=== PATIENT | female | born 1945 | race Caucasian/White ===

== ENCOUNTER 2016-09-12 01:09 | Inpatient (IN) | payer MEDICARE, MEDICAID ==
[2016-09-12] VITALS (9 sets, daily range): BP systolic 89–131; BP diastolic 44–59
[~2016-09-12] VITALS: Ht 167.6 cm; Wt 108.9 kg
[2016-09-12] MEDS ORDERED: FORADIL12 MCG IH (01:18)
[2016-09-12] MEDS ORDERED: VALPROIC ACID250 MG PO (01:18)
[2016-09-12] MEDS ORDERED: IPRATROPIUM BRO15 ML NS (01:18)
[2016-09-12] MEDS ORDERED: HALOPERIDOL1 MG ORAL (01:18)
[2016-09-12] MEDS ORDERED: OXYTROL1 EACH TD (01:18)
[2016-09-12] MEDS ORDERED: ATORVASTATIN CA20 MG ORAL (01:18)
[2016-09-12] MEDS ORDERED: LEVOTHYROXINE100 MCG ORAL (01:18)
[2016-09-12] MEDS ORDERED: ZYPREXA5 MG ORAL (01:18)
[2016-09-12] MEDS ORDERED: DOCUSATE SODIU100 MG ORAL (01:18)
[2016-09-12] MEDS ORDERED: LASIX40 MG ORAL (01:18)
[2016-09-12] MEDS ORDERED: SEROQUEL XR400 MG ORAL (02:13)
[2016-09-12] MEDS: metroNIDAZOLE 500mg 100 ML IV SCH ×4 (02:18→10:14)
[2016-09-12 02:20] LABS: BASOPHILS % (AUTO) 0.5 % (0.0-2.0); EOSINOPHILS % (AUTO) 0.2 % (0.0-3.0); LYMPHOCYTES % (AUTO) 14.1 % (20.0-45.0); MEAN CORPUSCULAR HEMOGLOBIN 33.7 PG (27.0-31.0); MEAN CORPUSCULAR HGB CONC 32.7 G/DL (32.0-36.0); MEAN CORPUSCULAR VOLUME 103 FL (80-99); MONOCYTES % (AUTO) 10.9 % (1.0-10.0); NEUTROPHILS % (AUTO) 74.3 % (45.0-75.0); PLATELET COUNT 172 K/UL (150-450); RED BLOOD COUNT 3.55 M/UL (4.20-5.40); RED CELL DISTRIBUTION WIDTH 13.7 % (11.6-14.8); WHITE BLOOD COUNT 15.7 K/UL (4.8-10.8)
[2016-09-12 02:22] LABS: APPEARANCE,URINE SLIGHTLY CLOUDY; KETONES,URINE 1+ (NEGATIVE); LEUKOCYTE ESTERASE ,URINE NEGATIVE (NEGATIVE); NITRITE,URINE POSITIVE (NEGATIVE); PH,URINE 5 (4.5-8.0); PROTEIN,URINE 3+ (NEGATIVE); UROBILINOGEN,URINE 1 MG/DL (0.0-1.0)
[2016-09-12 02:34] LABS: ALANINE AMINOTRANSFERASE 15 U/L (3-33); ANION GAP 15 (5-15); ASPARTATE AMINO TRANSFERASE 32 U/L (5-40); CALCIUM 8.4 mg/dL (8.6-10.2); CARBON DIOXIDE 27 mEQ/L (20-30); CHLORIDE 95 mEQ/L (98-107); CREATININE 0.8 mg/dL (0.5-0.9); HEMOLYSIS 8; POTASSIUM 3.7 mEQ/L (3.4-4.9); SODIUM 137 mEQ/L (135-145); TOTAL PROTEIN 6.5 g/dL (6.6-8.7)
[2016-09-12 02:36] LABS: REFLEX LACTIC ACID YES OR NO YES
[2016-09-12 02:42] LABS: BACTERIA,URINE MANY /HPF; HYALINE CASTS, URINE 0-2 /LPF; SQUAMOUS EPITHELIAL CELL,UR MODERATE /LPF (NONE/OCC); WBC,URINE 15-20 /HPF (0 - 2)
[2016-09-12 03:08] LABS: TROPONIN I < 0.30 ng/mL (<=0.30)
[2016-09-12 03:13] LABS: CKMB 1.7 ng/mL (< 3.8)
--- NOTE | 2016-09-12 03:57 | Emergency Room Report ---
History of Present Illness General Chief Complaint: Altered Level of Consciousness Source: Patient, Medical Record Present Illness HPI Patient is a 71-year-old female brought in by ambulance after increased altered level consciousness. The patient was noted to have prior history of psychosis. She was noted to be more confused. Patient noted have increased difficulty breathing and as well as productive cough. Patient was noted to have markedly difficulty breathing and was started on supplemental oxygen by EMS. The patient was noted to be hot to the touch. She presented from senior living Allergies: Coded Allergies: PENICILLINS (Verified Allergy, Intermediate, 09/12/16) ALPRAZOLAM (Verified Allergy, Mild, 09/12/16) DIVALPROEX SODIUM (Verified Allergy, Mild, 09/12/16) VARENICLINE (Verified Allergy, Mild, 09/12/16) Patient History Past Medical History: see triage record Reviewed Nursing Documentation: PMH: Agreed, PSxH: Agreed Nursing Documentation-PMH Past Medical History: No History, Except For Hx Hypertension: Yes Hx COPD: Yes Hx Diabetes: Yes - BS at a scene-[id number] History Of Psychiatric Problem: Yes - Bipolar, schizo Review of Systems All Other Systems: limited - by poor historian Physical Exam Vital Signs Date Time Temp Pulse Resp B/P Pulse Ox O2 Delivery O2 Flow Rate FiO2 09/12/16 01:10 101.1 141 18 156/98 98 Non-Rebreather 15.0 09/12/16 02:40 50 Sp02 EP Interpretation: reviewed, normal General Appearance: normal inspection, alert, moderate distress, obese Head: atraumatic ENT: normal ENT inspection, hearing grossly normal, normal voice Neck: normal inspection, full range of motion, supple, no bony tend Respiratory: normal inspection, no retraction, accessory muscle use, rhonchi Cardiovascular #1: regular rate, rhythm Gastrointestinal: normal inspection, normal bowel sounds, non tender, soft, no guarding, no hernia Genitourinary: no CVA tenderness Musculoskeletal: normal inspection, back normal, normal range of motion Neurologic: normal inspection, alert, responsive, land clearer III-XII nml as tested, speech normal Psychiatric: mood/affect normal, other - bizarre Skin: normal inspection, normal color, no rash Procedures Critical Care Time Critical Care Time Patient had a critical medical condition which untreated could potentially result in life or limb threatening injury. Total critical care time excluding procedures approximately 45 minutes. Medical Decision Making Diagnostic Impression: Primary Impression: Altered level of consciousness Additional Impressions: Severe sepsis Urinary tract infection ER Course Patient presented for altered mental status.Differential diagnosis included but was not limited to ischemic stroke, subarachnoid hemorrhage, hypoglycemia, spinal cord injury, neurodegenerative disorder, urinary tract infection, hypoxemia.Because of complexity of patient's case laboratory testing and imaging studies were ordered. The patient noted be afebrile. A chest x-ray one view interpreted by me showed bilateral the effusion with possible infiltrate. The patient started on IV fluids she started on BiPAP for respiratory distress. ABG is currently pending. EKG interpreted by me showed sinus tachycardia with a rate of 133 there were no acute ST or T wave changes noted. The patient was admitted to [facility] for further management of severe sepsis. Dr. Frances Rivers was contacted for inpatient management. The patient started on IV antibiotics due to infection. The patient given hydrocortisone empirically had the continued hypotension. Labs Test 09/12/16 01:30 09/12/16 01:45 White Blood Count 15.7 K/UL (4.8-10.8) Red Blood Count 3.55 M/UL (4.20-5.40) Hemoglobin 12.0 G/DL (12.0-16.0) Hematocrit 36.6 % (37.0-47.0) Mean Corpuscular Volume 103 FL (80-99) Mean Corpuscular Hemoglobin 33.7 PG (27.0-31.0) Mean Corpuscular Hemoglobin Concent 32.7 G/DL (32.0-36.0) Red Cell Distribution Width 13.7 % (11.6-14.8) Platelet Count 172 K/UL (150-450) Mean Platelet Volume 8.0 FL (6.5-10.1) Neutrophils (%) (Auto) 74.3 % (45.0-75.0) Lymphocytes (%) (Auto) 14.1 % (20.0-45.0) Monocytes (%) (Auto) 10.9 % (1.0-10.0) Eosinophils (%) (Auto) 0.2 % (0.0-3.0) Basophils (%) (Auto) 0.5 % (0.0-2.0) Sodium Level 137 mEQ/L (135-145) Potassium Level 3.7 mEQ/L (3.4-4.9) Chloride Level 95 mEQ/L (98-107) Carbon Dioxide Level 27 mEQ/L (20-30) Anion Gap 15 (5-15) Blood Urea Nitrogen 9 mg/dL (7-23) Creatinine 0.8 mg/dL (0.5-0.9) Estimat Glomerular Filtration Rate mL/min (>60) Glucose Level 272 mg/dL (74-106) Lactic Acid Level 2.90 mmol/L (0.66-2.22) Calcium Level 8.4 mg/dL (8.6-10.2) Total Bilirubin 0.8 mg/dL (0.0-1.2) Aspartate Amino Transf (AST/SGOT) 32 U/L (5-40) Alanine Aminotransferase (ALT/SGPT) 15 U/L (3-33) Alkaline Phosphatase 55 U/L (35-104) Total Creatine Kinase 140 U/L (26-140) Creatine Kinase MB 1.7 ng/mL (< 3.8) Creatine Kinase MB Relative Index 1.2 Troponin I < 0.30 ng/mL (<=0.30) Pro-B-Type Natriuretic Peptide 1186 pg/mL (0-125) Total Protein 6.5 g/dL (6.6-8.7) Albumin 3.3 g/dL (3.5-5.2) Globulin 3.2 g/dL Albumin/Globulin Ratio 1.0 (1.0-2.7) Urine Color Yellow Urine Appearance Slightly cloudy Urine pH 5 (4.5-8.0) Urine Specific [place] 1.025 (1.005-1.035) Urine Protein 3+ (NEGATIVE) Urine Glucose (UA) 2+ (NEGATIVE) Urine Ketones 1+ (NEGATIVE) Urine Occult Blood 3+ (NEGATIVE) Urine Nitrite Positive (NEGATIVE) Urine Bilirubin Negative (NEGATIVE) Urine Urobilinogen 1 MG/DL (0.0-1.0) Urine Leukocyte Esterase Negative (NEGATIVE) Urine RBC 2-4 /HPF (0 - 2) Urine WBC 15-20 /HPF (0 - 2) Urine Squamous Epithelial Cells Moderate /LPF (NONE/OCC) Urine Bacteria Many /HPF (NONE) Urine Hyaline Casts 0-2 /LPF (NONE) EKG Diagnostic Results Rate: tachycardiac - 133 Rhythm: NSR ST Segments: no acute changes Rhythm Strip Diag. Results EP Interpretation: yes Rhythm: NSR, no PVC's, no ectopy Chest X-Ray Diagnostic Results EP Interpretation: Yes Findings: no effusion, no pneumothorax, other - bilateral pleural effusion vs underpenetration Number of Views: 1 Last Vital Signs Date Time Temp Pulse Resp B/P Pulse Ox O2 Delivery O2 Flow Rate FiO2 09/12/16 03:11 35 09/12/16 02:40 120 26 Bi-pap 09/12/16 02:40 96 09/12/16 01:30 102.4 100/52 10.0 Status: unchanged Disposition: ADMITTED INPATIENT Condition: Critical Referrals: FRANCES RIVERS (PCP) Rosendo Whitten Sep 12, 2016 03:57
[2016-09-12] MEDS ORDERED: DuoNeb 0.5-3(2.5)mg/3ml neb HHN ONE (05:00)
[2016-09-12] MEDS ORDERED: Hydrocortisone 100mg Inj IV ONE (07:15)
--- NOTE | 2016-09-12 08:56 | Diagnostic Imaging Report ---
Indications: Shortness breath Technique: Portable AP chest Findings: Comparison: None Suboptimal inspiration, lordotic projection, port image quality due to patient body habitus limit evaluation. Heart size, pulmonary vasculature within normal limits. Visualized portions of lungs, pleura are grossly clear. No overt mediastinal widening. IMPRESSION: Limited exam demonstrating no overt evidence of acute cardiopulmonary disease. Upright PA and lateral chest radiographs with better inspiratory effort and optimal technique recommended for more complete evaluation.
--- NOTE | 2016-09-12 09:28 | Consultation ---
History of Present Illness General Date patient seen: Sep 12, 2016 Chief Complaint: Altered Level of Consciousness Referring physician: Dr. Jacinto Calvo Present Illness HPI 71-year-old female with psychosis, COPD, DM, currently residing in a snf, brought in by ambulance after an episode of altered level consciousness. She had also increased difficulty breathing and as well as productive cough. Patient was noted to have markedly difficulty breathing and was started on supplemental oxygen by EMS. Patient is awake now, but nor responding to any question. Allergies: Coded Allergies: PENICILLINS (Verified Allergy, Intermediate, 09/12/16) ALPRAZOLAM (Verified Allergy, Mild, 09/12/16) DIVALPROEX SODIUM (Verified Allergy, Mild, 09/12/16) VARENICLINE (Verified Allergy, Mild, 09/12/16) Medication History Scheduled Atorvastatin Calcium* (Atorvastatin Calcium*), 20 MG ORAL BEDTIME, (Reported) Docusate Sodium* (Docusate Sodium*), 100 MG ORAL THREE TIMES A DAY, (Reported) Furosemide* (Lasix*), 40 MG ORAL DAILY, (Reported) Haloperidol* (Haldol*), 5 MG ORAL EVERY 6 HOURS, (Reported) Levothyroxine Sodium* (Levothyroxine Sodium*), 100 MCG ORAL DAILY, (Reported) Olanzapine* (Zyprexa*), 5 MG ORAL DAILY, (Reported) Quetiapine Fumarate (Seroquel Xr), 400 MG ORAL BEDTIME, (Reported) Miscellaneous Medications Formoterol Fumarate (Foradil), 5 MCG IH, (Reported) Ipratropium [place] (Ipratropium [place]), 17 ML NS, (Reported) Oxybutynin (Oxytrol), 1 EACH TD, (Reported) Valproic Acid (Valproic Acid), 250 MG PO, (Reported) Patient History Healthcare decision maker Resuscitation status Advanced Directive on File Past Medical/Surgical History Past Medical/Surgical History: (1) Psychosis (2) COPD (chronic obstructive pulmonary disease) (3) Morbid obesity (4) Diabetes Review of Systems All Other Systems: negative except mentioned in HPI Physical Exam General Appearance: WD/WN Lines, tubes and drains: peripheral, central line Neck: non-tender, normal alignment Respiratory/Chest: chest wall non-tender, lungs clear Cardiovascular/Chest: normal peripheral pulses, regular rhythm Abdomen: normal bowel sounds, non tender Genitourinary/Rectal: normal genital exam Extremities: normal range of motion 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, no motor/sensory deficits Last 24 Hour Vital Signs Date Time Temp Pulse Resp B/P Pulse Ox O2 Delivery O2 Flow Rate FiO2 09/12/16 09:03 110 22 93 4.0 36 09/12/16 08:36 97.7 117 22 94/56 92 Nasal Cannula 3.5 09/12/16 07:57 4.0 36 09/12/16 07:55 98.0 110 22 96/44 92 Nasal Cannula 4.0 36 09/12/16 07:42 114 22 92 4.0 36 09/12/16 07:35 20 109/56 95 Nasal Cannula 3.0 09/12/16 07:08 98.0 114 18 89/54 93 Nasal Cannula 3.0 09/12/16 06:06 97.4 109 21 91/58 96 Nasal Cannula 3.0 09/12/16 05:11 113 21 97 Nasal Cannula 3.0 32 09/12/16 04:58 112 23 93 Nasal Cannula 3.0 32 09/12/16 04:36 97.4 112 19 93/59 96 Nasal Cannula 3.0 09/12/16 03:11 35 09/12/16 02:40 120 26 Bi-pap 50 09/12/16 02:40 120 26 96 Facial 50 09/12/16 01:30 102.4 133 29 100/52 99 Non-Rebreather 10.0 09/12/16 01:10 101.1 141 18 156/98 98 Non-Rebreather 15.0 Intake and Output 09/11/16 09/12/16 19:00 07:00 Intake Total 650 ml Balance 650 ml Intake IV Total 650 ml # Voids 1 Laboratory Tests Test 09/12/16 01:30 09/12/16 01:45 09/12/16 03:50 White Blood Count 15.7 K/UL (4.8-10.8) H Red Blood Count 3.55 M/UL (4.20-5.40) L Hemoglobin 12.0 G/DL (12.0-16.0) Hematocrit 36.6 % (37.0-47.0) L Mean Corpuscular Volume 103 FL (80-99) H Mean Corpuscular Hemoglobin 33.7 PG (27.0-31.0) H Mean Corpuscular Hemoglobin Concent 32.7 G/DL (32.0-36.0) Red Cell Distribution Width 13.7 % (11.6-14.8) Platelet Count 172 K/UL (150-450) Mean Platelet Volume 8.0 FL (6.5-10.1) Neutrophils (%) (Auto) 74.3 % (45.0-75.0) Lymphocytes (%) (Auto) 14.1 % (20.0-45.0) L Monocytes (%) (Auto) 10.9 % (1.0-10.0) H Eosinophils (%) (Auto) 0.2 % (0.0-3.0) Basophils (%) (Auto) 0.5 % (0.0-2.0) Sodium Level 137 mEQ/L (135-145) Potassium Level 3.7 mEQ/L (3.4-4.9) Chloride Level 95 mEQ/L (98-107) L Carbon Dioxide Level 27 mEQ/L (20-30) Anion Gap 15 (5-15) Blood Urea Nitrogen 9 mg/dL (7-23) Creatinine 0.8 mg/dL (0.5-0.9) Estimat Glomerular Filtration Rate mL/min (>60) Glucose Level 272 mg/dL (74-106) H Lactic Acid Level 2.90 mmol/L (0.66-2.22) H 1.70 mmol/L (0.66-2.22) Calcium Level 8.4 mg/dL (8.6-10.2) L Total Bilirubin 0.8 mg/dL (0.0-1.2) Aspartate Amino Transf (AST/SGOT) 32 U/L (5-40) Alanine Aminotransferase (ALT/SGPT) 15 U/L (3-33) Alkaline Phosphatase 55 U/L (35-104) Total Creatine Kinase 140 U/L (26-140) Creatine Kinase MB 1.7 ng/mL (< 3.8) Creatine Kinase MB Relative Index 1.2 Troponin I < 0.30 ng/mL (<=0.30) Pro-B-Type Natriuretic Peptide 1186 pg/mL (0-125) H Total Protein 6.5 g/dL (6.6-8.7) L Albumin 3.3 g/dL (3.5-5.2) L Globulin 3.2 g/dL Albumin/Globulin Ratio 1.0 (1.0-2.7) Urine Color Yellow Urine Appearance Slightly cloudy Urine pH 5 (4.5-8.0) Urine Specific [place] 1.025 (1.005-1.035) Urine Protein 3+ (NEGATIVE) H Urine Glucose (UA) 2+ (NEGATIVE) H Urine Ketones 1+ (NEGATIVE) H Urine Occult Blood 3+ (NEGATIVE) H Urine Nitrite Positive (NEGATIVE) H Urine Bilirubin Negative (NEGATIVE) Urine Urobilinogen 1 MG/DL (0.0-1.0) H Urine Leukocyte Esterase Negative (NEGATIVE) Urine RBC 2-4 /HPF (0 - 2) H Urine WBC 15-20 /HPF (0 - 2) H Urine Squamous Epithelial Cells Moderate /LPF (NONE/OCC) H Urine Bacteria Many /HPF (NONE) H Urine Hyaline Casts 0-2 /LPF (NONE) H Microbiology Date/Time Source Procedure Growth Status 09/12/16 02:15 Nasal Nares Influenza Types A,B Antigen ([facility]) - Final Complete Height (Feet): 5 Height (Inches): 6.00 Weight (Pounds): 240 Medications Current Medications Medications (Trade) Dose Ordered Sig/Bari Route PRN Reason Start Time Stop Time Status Last Admin Dose Admin Acetaminophen (Tylenol) 650 mg Q4H PRN ORAL fever 09/12/16 09:15 10/12/16 09:14 UNV Al Hydroxide/Mg Hydroxide (Mylanta II) 30 ml Q6H PRN ORAL dyspepsia 09/12/16 09:15 10/12/16 09:14 UNV Albuterol/ Ipratropium (DuoNeb 0.5-3(2.5)mg/3ml) 3 ml EVERY 4 HOURS PRN HHN Shortness of Breath 09/12/16 09:15 09/17/16 09:14 UNV Aztreonam/Dextrose (Azactam/D5W 50ml) 55 ml @ 110 mls/hr Q8HR IVPB 09/12/16 14:00 09/19/16 13:59 UNV Dextrose (Dextrose 50%) STAT PRN IV Hypoglycemia 09/12/16 09:15 10/12/16 09:14 UNV Haloperidol (Haldol) 5 mg EVERY 6 HOURS ORAL 09/12/16 12:00 10/12/16 11:59 UNV Heparin Sodium (Porcine) (Heparin 5000 units/ml) 5,000 units EVERY 12 HOURS SUBQ 09/12/16 21:00 10/12/16 20:59 UNV Insulin Aspart (NovoLOG) BEFORE MEALS AND HS SUBQ 09/12/16 11:30 10/12/16 11:29 UNV Levofloxacin (Levaquin 750mg/ D5W) 150 ml @ 150 mls/hr Q24H IV 09/12/16 02:15 09/13/16 02:14 09/12/16 03:16 Levothyroxine Sodium (Synthroid) 100 mcg DAILY ORAL 09/13/16 09:00 10/13/16 08:59 UNV Metronidazole 100 ml @ 100 mls/hr Q8H IV 09/12/16 02:15 09/13/16 02:14 09/12/16 02:18 Nitroglycerin (Ntg) 0.4 mg Q5M PRN SL Prn Chest Pain 09/12/16 09:15 10/12/16 09:14 UNV Olanzapine (ZyPREXA) 5 mg DAILY ORAL 09/13/16 09:00 10/13/16 08:59 UNV Ondansetron HCl (Zofran) 4 mg Q6H PRN IVP Nausea & Vomiting 09/12/16 09:15 10/12/16 09:14 UNV Polyethylene Glycol (Miralax) 17 gm DAILYPRN PRN ORAL Constipation 09/12/16 09:15 10/12/16 09:14 UNV Quetiapine Fumarate (SEROquel) 200 mg Q12HR ORAL 09/12/16 21:00 10/12/16 20:59 UNV Valproic Acid (Depakene) 250 mg DAILY ORAL 09/13/16 09:00 10/13/16 08:59 UNV Vancomycin HCl 1 ea 1 ea DAILY PRN MISC Per rx protocol 09/12/16 09:15 10/12/16 09:14 UNV Assessment/Plan Problem List: (1) Severe sepsis ICD Codes: A41.9 - Sepsis, unspecified organism; R65.20 - Severe sepsis without septic shock SNOMED: 09779549 (2) Urinary tract infection ICD Codes: N39.0 - Urinary tract infection, site not specified SNOMED: 34117871 (3) Altered level of consciousness ICD Codes: R40.4 - Transient alteration of awareness SNOMED: 7891095 (4) COPD (chronic obstructive pulmonary disease) ICD Codes: J44.9 - Chronic obstructive pulmonary disease, unspecified SNOMED: 10719694 Qualifiers: Qualified Codes: J44.9 - Chronic obstructive pulmonary disease, unspecified (5) Morbid obesity ICD Codes: E66.01 - Morbid (severe) obesity due to excess calories SNOMED: 523680334, 19018515740171 Qualifiers: Qualified Codes: E66.01 - Morbid (severe) obesity due to excess calories (6) Psychosis ICD Codes: F29 - Unspecified psychosis not due to a substance or known physiological condition SNOMED: 26573800 (7) Diabetes ICD Codes: E11.9 - Type 2 diabetes mellitus without complications SNOMED: 50793617 Qualifiers: Qualified Codes: E11.9 - Type 2 diabetes mellitus without complications Assessment/Plan respiratory treatment IV antibiotics check cultures check wbc daily echo lasix prn bipap prn dvt prophylaxis continue psychiatric meds. DIDI WEISS Sep 12, 2016 09:28
[2016-09-12] MEDS ORDERED: Haloperidol 1mg tab ORAL SCH (12:00)
[2016-09-12] MEDS ORDERED: Mylanta II UD 30ml ORAL PRN (13:00)
[2016-09-12] MEDS ORDERED: Nitroglycerin Subl 0.4mg tab (Bottle Of 25) SL PRN (13:00)
[2016-09-12] MEDS ORDERED: DuoNeb 0.5-3(2.5)mg/3ml neb HHN PRN (13:00)
[2016-09-12] MEDS ORDERED: Miralax 17gm pkt ORAL PRN (13:00)
[2016-09-12] MEDS: NovoLOG Insulin Flexpen SUBQ SCH ×3 (13:18→20:57)
[2016-09-12] MEDS: Aztreonam Inj 1 GM in D5W 55 ML IVPB SCH ×2 (14:14→22:00)
[2016-09-12] MEDS: Vancomycin 1250mg/D5W 250ml IVPB SCH ×2 (17:36)
[2016-09-12] MEDS: QUEtiapine 200mg tab ORAL SCH (20:55)
[2016-09-12] MEDS: Heparin 5000 units/ml inj SUBQ SCH (20:56)
[2016-09-13] VITALS (7 sets, daily range): BP systolic 89–118; BP diastolic 51–81
[2016-09-13 04:58] LABS: EOSINOPHILS % (AUTO) 0.3 % (0.0-3.0); LYMPHOCYTES % (AUTO) 8.4 % (20.0-45.0); MEAN CORPUSCULAR HGB CONC 31.6 G/DL (32.0-36.0); MEAN CORPUSCULAR VOLUME 105 FL (80-99); MEAN PLATELET VOLUME 7.2 FL (6.5-10.1); MONOCYTES % (AUTO) 10.9 % (1.0-10.0); NEUTROPHILS % (AUTO) 79.5 % (45.0-75.0); PLATELET COUNT 163 K/UL (150-450); RED BLOOD COUNT 3.28 M/UL (4.20-5.40); RED CELL DISTRIBUTION WIDTH 13.5 % (11.6-14.8); WHITE BLOOD COUNT 11.4 K/UL (4.8-10.8)
[2016-09-13] MEDS: Aztreonam Inj 1 GM in D5W 55 ML IVPB SCH ×3 (05:00→21:33)
[2016-09-13 05:07] LABS: INR 1.2 (0.9-1.1); PROTHROMBIN TIME 11.8 SEC (9.30-11.50)
[2016-09-13] MEDS: Vancomycin 1250mg/D5W 250ml IVPB SCH ×4 (05:30→17:32)
[2016-09-13] MEDS: NovoLOG Insulin Flexpen SUBQ SCH ×4 (05:32→20:18)
[2016-09-13 07:07] LABS: ALANINE AMINOTRANSFERASE 14 U/L (3-33); ALBUMIN/GLOBULIN RATIO 0.9 (1.0-2.7); ANION GAP 12 (5-15); ANION GAP 13 (5-15); ASPARTATE AMINO TRANSFERASE 21 U/L (5-40); CALCIUM 8.5 mg/dL (8.6-10.2); CALCIUM 8.6 mg/dL (8.6-10.2); CARBON DIOXIDE 30 mEQ/L (20-30); CARBON DIOXIDE 31 mEQ/L (20-30); CHLORIDE 98 mEQ/L (98-107); CHOLESTEROL 99 mg/dL (< 200); CHOLESTEROL/HDL RATIO 2.8 (3.3-4.4); CREATININE 0.7 mg/dL (0.5-0.9); CREATININE 0.8 mg/dL (0.5-0.9); HEMOLYSIS 3; HEMOLYSIS 4; LDL CHOLESTEROL (CALC.) 51 mg/dL (60-99); MAGNESIUM 2.3 mg/dL (1.7-2.5); PHOSPHORUS 1.6 mg/dL (2.5-4.8); POTASSIUM 3.9 mEQ/L (3.4-4.9); SODIUM 141 mEQ/L (135-145); TOTAL PROTEIN 6.5 g/dL (6.6-8.7)
[2016-09-13 07:14] LABS: FREE T3 1.1 pg/mL (2.3-4.2)
[2016-09-13] MEDS: QUEtiapine 200mg tab ORAL SCH ×2 (09:00→20:15)
[2016-09-13] MEDS: Heparin 5000 units/ml inj SUBQ SCH ×2 (09:42→20:17)
[2016-09-13] MEDS: Promethazine/Codeine 5ml UD ORAL PRN ×3 (09:43→18:27)
--- NOTE | 2016-09-13 12:26 | Pulmonology Progress Note ---
Assessment/Plan Problems: (1) Severe sepsis (2) Urinary tract infection (3) Altered level of consciousness (4) COPD (chronic obstructive pulmonary disease) (5) Morbid obesity (6) Psychosis (7) Diabetes Assessment/Plan afebrile wbc coming down cultures not available yet continue Aztreonam sliding scale labs in am Subjective ROS Limited/Unobtainable: No Interval Events: less cough, afebrile Allergies: Coded Allergies: PENICILLINS (Verified Allergy, Intermediate, 09/12/16) ALPRAZOLAM (Verified Allergy, Mild, 09/12/16) DIVALPROEX SODIUM (Verified Allergy, Mild, 09/12/16) VARENICLINE (Verified Allergy, Mild, 09/12/16) Objective Last 24 Hour Vital Signs Date Time Temp Pulse Resp B/P Pulse Ox O2 Delivery O2 Flow Rate FiO2 09/13/16 08:00 98.1 116 22 102/51 94 Venturi Mask 45 09/13/16 08:00 116 09/13/16 07:16 Venturi Mask 8.0 40 09/13/16 07:16 99 23 Venturi Mask 8.0 40 09/13/16 07:16 94 Venturi Mask 8.0 40 09/13/16 04:00 120 09/13/16 04:00 98.6 110 22 118/81 95 Venturi Mask 40 09/13/16 00:00 98.1 109 20 99/61 96 Venturi Mask 40 09/13/16 00:00 113 09/12/16 21:22 95 20 98 Venturi Mask 8.0 40 09/12/16 21:13 93 20 94 Nasal Cannula 4.0 36 09/12/16 20:06 97 09/12/16 20:00 98.6 69 19 131/50 94 Nasal Cannula 4.0 09/12/16 19:12 Nasal Cannula 4.0 36 09/12/16 19:12 103 20 Nasal Cannula 4.0 36 09/12/16 19:12 95 Nasal Cannula 4.0 36 09/12/16 16:50 101 20 94 4.0 36 09/12/16 16:00 98.1 99 20 92/49 97 Nasal Cannula 4.0 09/12/16 16:00 100 09/12/16 15:15 101 20 94 4.0 36 09/12/16 12:50 106 20 95 4.0 36 Intake and Output 09/12/16 09/13/16 19:00 07:00 Intake Total 1198 ml 402 ml Output Total 150 ml 550 ml Balance 1048 ml -148 ml Intake Oral 460 ml 200 ml IV Total 738 ml 202 ml Output Urine Total 150 ml 550 ml Stool Total 0 ml # Voids 1 General Appearance: WD/WN HEENT: normocephalic, atraumatic Respiratory/Chest: chest wall non-tender, lungs clear Cardiovascular: normal peripheral pulses, normal rate Abdomen: normal bowel sounds, soft, non tender Genitourinary: normal external genitalia Extremities: no cyanosis Skin: no rash Microbiology Date/Time Source Procedure Growth Status 09/12/16 01:30 Blood Blood Culture - Preliminary NO GROWTH AFTER 24 HOURS Resulted 09/12/16 01:30 Blood Blood Culture - Preliminary NO GROWTH AFTER 24 HOURS Resulted 09/12/16 02:15 Nasal Nares Influenza Types A,B Antigen (KARTHIKEYAN) - Final Complete 09/12/16 01:45 Urine,Clean Catch Urine Culture - Preliminary Gram Negative Bacillus 1 Resulted Laboratory Tests 09/13/16 04:25: White Blood Count 11.4H, Red Blood Count 3.28L, Hemoglobin 10.8L, Hematocrit 34.3L, Mean Corpuscular Volume 105H, Mean Corpuscular Hemoglobin 33.0H, Mean Corpuscular Hemoglobin Concent 31.6L, Red Cell Distribution Width 13.5, Platelet Count 163, Mean Platelet Volume 7.2, Neutrophils (%) (Auto) 79.5H, Lymphocytes (%) (Auto) 8.4L, Monocytes (%) (Auto) 10.9H, Eosinophils (%) (Auto) 0.3, Basophils (%) (Auto) 1.0, Prothrombin Time 11.8H, Prothromb Time International Ratio 1.2H, Activated Partial Thromboplast Time 33, Sodium Level 141, Potassium Level 3.9, Chloride Level 98, Carbon Dioxide Level 31H, Anion Gap 12, Blood Urea Nitrogen 12, Creatinine 0.7, Estimat Glomerular Filtration Rate , Glucose Level 132#H, Calcium Level 8.6, Phosphorus Level 1.6L, Magnesium Level 2.3, Total Bilirubin 0.4, Aspartate Amino Transf (AST/SGOT) 21, Alanine Aminotransferase (ALT/SGPT) 14, Alkaline Phosphatase 59, Total Protein 6.5L, Albumin 3.2L, Globulin 3.3, Albumin/Globulin Ratio 0.9L, Triglycerides Level 60 , Cholesterol Level 99, LDL Cholesterol 51L, HDL Cholesterol 36, Cholesterol/ HDL Ratio 2.8L, Thyroid Stimulating Hormone (TSH) 9.780H, Free Thyroxine 0.58L, Free Triiodothyronine 1.1L Current Medications Medications (Trade) Dose Ordered Sig/Bari Route PRN Reason Start Time Stop Time Status Last Admin Dose Admin Acetaminophen (Tylenol) 650 mg Q4H PRN ORAL fever 09/12/16 13:00 10/12/16 12:59 Al Hydroxide/Mg Hydroxide (Mylanta II) 30 ml Q6H PRN ORAL dyspepsia 09/12/16 13:00 10/12/16 12:59 Albuterol/ Ipratropium (DuoNeb 0.5-3(2.5)mg/3ml) 3 ml EVERY 4 HOURS PRN HHN Shortness of Breath 09/12/16 13:00 09/17/16 12:59 09/12/16 21:13 Aztreonam/Dextrose (Azactam/D5W 50ml) 55 ml @ 110 mls/hr Q8HR IVPB 09/12/16 14:00 09/19/16 13:59 09/13/16 05:00 Dextrose (Dextrose 50%) STAT PRN IV Hypoglycemia 09/12/16 13:00 10/12/16 12:59 Haloperidol (Haldol) 5 mg EVERY 6 HOURS ORAL 09/12/16 15:10 10/12/16 11:59 09/13/16 11:24 Heparin Sodium (Porcine) (Heparin 5000 units/ml) 5,000 units EVERY 12 HOURS SUBQ 09/12/16 21:00 10/12/16 20:59 09/13/16 09:42 Insulin Aspart (NovoLOG) BEFORE MEALS AND HS SUBQ 09/12/16 13:00 10/12/16 12:59 09/13/16 11:21 Levothyroxine Sodium (Synthroid) 100 mcg DAILY@0630 ORAL 09/13/16 06:30 10/13/16 06:29 09/13/16 05:30 Nitroglycerin (Ntg) 0.4 mg Q5MIN X3 PRN SL Prn Chest Pain 09/12/16 13:00 2/13/17 12:59 Olanzapine (ZyPREXA) 5 mg DAILY ORAL 09/13/16 09:00 10/13/16 08:59 09/13/16 09:00 Ondansetron HCl (Zofran) 4 mg Q6H PRN IVP Nausea & Vomiting 09/12/16 13:00 10/12/16 12:59 Polyethylene Glycol (Miralax) 17 gm DAILYPRN PRN ORAL Constipation 09/12/16 13:00 10/12/16 12:59 Promethazine HCl/ Codeine (Phenergan with Codeine) 5 ml Q4H PRN ORAL For Cough 09/13/16 08:15 10/13/16 08:14 09/13/16 09:43 Quetiapine Fumarate 200 mg 200 mg Q12HR ORAL 09/12/16 21:00 10/12/16 20:59 09/13/16 09:00 Valproic Acid (Depakene) 250 mg DAILY ORAL 09/13/16 09:00 10/13/16 08:59 UNV Vancomycin HCl 1 ea 1 ea DAILY PRN MISC Per rx protocol 09/12/16 14:00 10/12/16 13:59 Vancomycin HCl/ Dextrose (Vancomycin/D5W 250ml) 275 ml @ 183.333 mls/hr Q12HR@0600,1800 IVPB 09/12/16 18:00 09/17/16 17:59 09/13/16 05:30 DIDI WEISS Sep 13, 2016 12:26
[2016-09-13] MEDS: Valproic Acid 250mg/5ml Liquid ORAL SCH ×2 (13:40→20:15)
[2016-09-13] MEDS ORDERED: Sodium Phosphate 30 MM in NS 250 ML IV ONE (14:00)
--- NOTE | 2016-09-13 19:42 | Cardiology Report ---
APPROVED REPORT EKG Measurement Heart [id number] ND [id number] [id number] Sinus tachycardia Otherwise normal ECG
[2016-09-13] MEDS ORDERED: Norco 10mg/325mg tab ORAL PRN (20:45)
--- NOTE | 2016-09-13 22:38 | History and Physical Report ---
DATE OF ADMISSION: 09/12/2016 CHIEF COMPLAINT: This in History and Physical and first admission to [facility] of this 71-year-old lady because of severe shortness of breath and near loss of consciousness. HISTORY OF PRESENT ILLNESS: The patient is a resident of an extended care facility. The patient has been apparently stable condition for short periods of time. Few days after admission, she developed shortness of breath, and was found near loss of conscious on the floor. Paramedics was called and the patient was transferred to [facility] ER. She was found to be in congestive heart failure and was admitted. PAST MEDICAL HISTORY: The patient is eye contact, but nonresponsive. Review of her medical record revealed the patient has chronic chronic obstructive pulmonary disease, type 2 diabetes mellitus. ALLERGIES: The patient is allergic to penicillin, alprazolam, divalproex sodium, and allergies were verified with reaction from . FAMILY HISTORY: . SOCIAL HISTORY: She is single. She was born in [place]. She has been retired for several years. Prior to the appearance of the total disability, she worked at odd jobs. MEDICATIONS: The patient is on atorvastatin 20 mg daily, DSS 100 mg t.i.d., furosemide 40 mg daily, Haldol 5 mg every six hours, levothyroxine 100 mcg daily, olanzapine 5 mg daily, quetiapine 400 mg at bedtime, oxybutynin, and Oxycodone patch daily and valproic acid 250 mg p.o. REVIEW OF SYSTEMS: The patient is unable to give any information regarding her state of health. PHYSICAL EXAMINATION: VITAL SIGNS: Blood pressure is 128/49, pulse 112, respirations 21, and temperature was 98.1. HEENT: Eyes were normal. Pupils were round, equal, and reactive to light. Sclerae was white. Conjunctiva was pink. Extraocular movements were normal. Temporal arteries were palpable bilaterally. There was no bilateral temporal wasting. Visual waite to confrontation. Neglect sign could not be assessed. ENT, mucous membranes were not dehydrated. Auditory canals were clear and tympanic membranes could not be visualized. Her nasal cavity was not congested. Nasal septum was intact. Soft palate was free of ulcerations. Pharynx was clear from exudate or tonsillar hypertrophy. Uvula romeo to phonation. Tongue was moist, midline, and normally papillated. NECK: Supple. There was no goiter. No mass. No lymphadenopathy. There was no jugular venous distention. No bruits. Carotid upstroke was 2+. LUNGS: Bilateral rhonchi at both bases. There was bilateral wheezing in the upper lobes. There was diffuse reduced breath sounds in both lungs. HEART: PMI was fifth left intercostal space in midclavicular line. There was normal S1 and normal S2. There was no murmur. No arrhythmia. No S3. No S4. No pericardial rub. There was tachycardia at rest. Sinus tachycardia on monitor. ABDOMEN: Soft, obese, and nontender with normal bowel sounds. There was no guarding. No rebound tenderness. No ascites. No hernia. No CVA tenderness. Liver span was 8 cm, mostly nontender. EXTREMITIES: No cyanosis. No clubbing. There is 2+ edema in lower extremity. NEUROLOGIC: Reflexes in biceps, triceps, and brachioradialis were present. Patellar retinaculum were present. Plantar were in flexion. Cranial II through XII were symmetric and equal. Cerebellar function, there was no tremor. No nystagmus. No extrapyramidal rigidity. Sensory exam to pinprick, cotton touch, position, and motor strength was 5/5 against resistance in upper and lower extremities in proximal and distal the patient was positive probably due to the psychiatric medications that she took short time prior to this examination. LABORATORY DATA: Hemoglobin is 12.0, hematocrit 36.6 with MCV of 103, WBC of 15.7, and platelet is 172,000. Her BUN and creatinine is 9 and 0.8 respectively. Her sodium is 137, potassium 3.7, chloride 95, CO2 was 27. Her glucose of 272 and calcium was 8.4. Her troponin was not detected. Her proBNP was 1186. Albumin was 3.3 and total protein was 6.5. Her chest x-ray heart size and pulmonary vascularity were normal and visualizing of the lungs are normal as well. IMPRESSION: The patient has chronic obstructive pulmonary disease may be associated cor pulmonale, morbid obesity, chronic psychosis, hypothyroidism. PLAN: Undergo biological imaging studies, pulmonary political consultant was called to assist in the management of this case. Repeat laboratory tests will be done in the morning. Jacinto Calvo M.D. DR: Diane JOB#: [id number] CC:
[2016-09-14 00:36] VITALS: BP 108/57
[2016-09-14] MEDS: Levalbuterol Inh UD 1.25mg/0.5ml HHN SCH ×4 (00:53→20:00)
[2016-09-14] MEDS: LORazepam Inj 2mg/ml 1ml IV PRN ×2 (03:23→07:47)
[2016-09-14 04:29] VITALS: BP 104/52
--- NOTE | 2016-09-14 05:07 | Progress Note ---
DATE: 09/13/2016 CARDIOLOGY PROGRESS NOTE SUBJECTIVE: The patient has congestion and shortness of breath. She continues to have episodes of sinus tachycardia. OBJECTIVE: VITAL SIGNS: Blood pressure is 89/52, pulse rate 114, respiratory rate 20, and temperature maximum 102 degrees. CHEST: Bilateral breath sounds. Scattered rhonchi. HEART: Regular rhythm. Rapid rate. Normal S1 and S2. ABDOMEN: Soft. Dependent edema. Morbidly obese. LABORATORY DATA: White count is 11.4 and hemoglobin 10.8. Sodium is 141, potassium 3.9, bicarbonate 31, chloride 98, BUN 12, and creatinine 0.7. Phosphorus is 1.6 and magnesium is 2.3. TSH is 9.78. Pro-natriuretic peptide yesterday was 1186. IMPRESSION: 1. Chronic obstructive pulmonary disease. 2. Obesity. 3. Pneumonia. 4. Paroxysmal sinus tachycardia. 5. Hypothyroidism. 6. Type 2 diabetes mellitus with hyperglycemia. 7. Acute on chronic diastolic congestive heart failure. PLAN: 1. Continue antibiotics. 2. Volume support. 3. Instant titration. 4. Inhaled bronchodilators. 5. DVT prophylaxis. 6. Check venous duplex to evaluate for possible source of pulmonary emboli in this clinical setting. Rupesh Aceves M.D. DR: Khloe JOB#: [id number] CC:
[2016-09-14] MEDS: Aztreonam Inj 1 GM in D5W 55 ML IVPB SCH ×3 (05:33→22:10)
--- NOTE | 2016-09-14 06:07 | Consultation ---
DATE OF CONSULTATION: 09/12/2016 CARDIOLOGY CONSULTATION CONSULTING PHYSICIAN: Rupesh Aceves M.D. REQUESTING PHYSICIAN: Jacinto Calvo M.D. REASON FOR CONSULTATION: Evaluate for congestive heart failure. HISTORY OF PRESENT ILLNESS: This is a 71-year-old female, who was admitted to the hospital with shortness of breath and near loss of consciousness. She resides in a halfway facility. She developed shortness of breath and was found on the floor with near loss of consciousness. She was responsive according to report. She was transferred to the emergency room of [facility] where an evaluation was obtained and concerned over congestive heart failure, hence prompted this consultation. PAST MEDICAL HISTORY: The patient's past medical history includes COPD, [id number] diabetes mellitus, obesity, hyperlipidemia, hypothyroidism, and psychiatric disorder. MEDICATIONS: Medications prior to admission reviewed and reconciled. ALLERGIES: Include penicillin, alprazolam, and divalproex. SOCIAL HISTORY: Apparently smoker in the past. FAMILY HISTORY: Not known. REVIEW OF SYSTEMS: Cannot be reliably obtained from the patient. PHYSICAL EXAMINATION: VITAL SIGNS: Blood pressure is 128/49, pulse rate 112, respiratory rate 21, and afebrile. HEENT: Conjunctivae are pink. Sclerae are anicteric. Oropharynx is clear. Mucous membranes are moist. NECK: Supple. Jugular venous pressure is normal. Oropharynx is clear. Carotid upstrokes without delay. LUNGS: With bilateral rhonchi and expiratory wheezes. CARDIAC: With regular rhythm and rate. Normal S1 and S2. Diffuse point of maximum impulse. Point of maximum impulse is laterally displaced. ABDOMEN: Obese, soft, and nontender. EXTREMITIES: With 1 to 2+ bilateral pitting edema. NEUROLOGIC: Reveals symmetric strength. LABORATORY DATA: White count is 15.7 and hemoglobin 12. BUN is 9, creatinine 0.8, sodium 137, potassium 3.7, bicarbonate 27, and glucose 272. Troponin is negative. Pro-natriuretic peptide is 1186. Albumin is 3.3. Urinalysis reveals 15-20 white cells. DIAGNOSTIC DATA: Chest x-ray reveals no acute process. IMPRESSION: 1. Urinary tract infection, possible sepsis. 2. Secondary sinus tachycardia. 3. Chronic obstructive pulmonary disease exacerbation. 4. Chronic diastolic congestive heart failure with acute component possibly due to acute pulmonary insufficiency and mobility, obesity, and increased risk for chronic venous stasis and deep thrombosis. 5. Hypothyroidism, on replacement therapy. PLAN: 1. Panculture. 2. Broad-spectrum antibiotics. 3. Hold diuresis. 4. Check thyroid panel. 5. DVT prophylaxis. 6. Venous duplex scan. 7. Echocardiogram. 8. Inhaled bronchodilators. 9. Reassess cardiovascular regimen over the next 24 hours. Rupesh Aceves M.D. DR: Khloe JOB#: [id number] CC:
[2016-09-14 06:16] LABS: BASOPHILS % (AUTO) 2.1 % (0.0-2.0); EOSINOPHILS % (AUTO) 0.4 % (0.0-3.0); LYMPHOCYTES % (AUTO) 15.9 % (20.0-45.0); MEAN CORPUSCULAR HEMOGLOBIN 34.3 PG (27.0-31.0); MEAN CORPUSCULAR HGB CONC 32.4 G/DL (32.0-36.0); MEAN CORPUSCULAR VOLUME 106 FL (80-99); MEAN PLATELET VOLUME 7.1 FL (6.5-10.1); MONOCYTES % (AUTO) 11.8 % (1.0-10.0); PLATELET COUNT 181 K/UL (150-450); RED BLOOD COUNT 3.18 M/UL (4.20-5.40); RED CELL DISTRIBUTION WIDTH 13.1 % (11.6-14.8); WHITE BLOOD COUNT 9.4 K/UL (4.8-10.8)
[2016-09-14 06:22] LABS: ALANINE AMINOTRANSFERASE 15 U/L (3-33); ALBUMIN/GLOBULIN RATIO 0.7 (1.0-2.7); ANION GAP 11 (5-15); ASPARTATE AMINO TRANSFERASE 21 U/L (5-40); CALCIUM 8.2 mg/dL (8.6-10.2); CARBON DIOXIDE 31 mEQ/L (20-30); CHLORIDE 99 mEQ/L (98-107); CREATININE 0.6 mg/dL (0.5-0.9); HEMOLYSIS 3; POTASSIUM 3.9 mEQ/L (3.4-4.9); SODIUM 141 mEQ/L (135-145); TOTAL PROTEIN 6.8 g/dL (6.6-8.7)
[2016-09-14] MEDS: NovoLOG Insulin Flexpen SUBQ SCH ×4 (06:32→22:12)
--- NOTE | 2016-09-14 06:47 | Progress Note ---
DATE: 09/13/2016 SUBJECTIVE: The patient is awake and alert, but . PHYSICAL EXAMINATION: VITAL SIGNS: Blood pressure is 114/70, pulse is 116, respirations 22, and temperature is 103. HEENT: Eyes were normal. ENT, mucous membranes were moist and intact. NECK: Supple with no JVD, without lymph nodes. LUNGS: Clear without rhonchi, rales, or wheezing. HEART: Normal sounds with irregular beats. There is tachycardia at rest. Sinus tachycardia on monitor. ABDOMEN: Soft, obese, and nontender with normal bowel sounds. EXTREMITIES: Warm without cyanosis, clubbing, or edema. LABORATORY DATA: Hemoglobin is 10.8, hematocrit 34.3 with MCV of 105, WBC of 11.4, and platelets 163,000. Her BUN and creatinine is 12 and 0.7 respectively. Her sodium is 141, potassium 3.9, chloride 98, and CO2 is 31. Her calcium is 8.6, phosphorus is 1.6, magnesium is 2.3, and glucose is 132. LDL cholesterol is 61. 54 abnormal. Her INR is 1.2 with PTT was 33. Urinalysis showed , wbc is 98.6, and leukocyte esterase negative. IMPRESSION: The patient has been febrile, tachycardic with pyuria. She is on vancomycin 1 g 250 q.12 h., levothyroxine 100 mcg daily, and heparin 5000 units subcutaneously q.12 h. She has been on Seroquel and Zyprexa on a daily basis as well as Ativan 2 mg b.i.d. and Depakote. She is also on 1 g IV piggyback q.8 h. will be requested to assess the patient to assess her renal and excretory system. Repeat laboratory tests will be done in the a.m. The patient has hypophosphatemia with . Jacinto Calvo M.D. DR: JESSICA JOB#: [id number] CC:
[2016-09-14 08:00] VITALS: BP 107/62
[2016-09-14] MEDS: QUEtiapine 200mg tab ORAL SCH ×2 (09:24→22:08)
[2016-09-14] MEDS: Heparin 5000 units/ml inj SUBQ SCH ×2 (09:25→22:11)
[2016-09-14] MEDS: Valproic Acid 250mg/5ml Liquid ORAL SCH ×2 (09:25→22:08)
[2016-09-14] MEDS ORDERED: Vancomycin 1.5 GM/D5W 325 ML IVPB SCH ×2 (10:00)
--- NOTE | 2016-09-14 11:19 | Pulmonology Progress Note ---
Assessment/Plan Problems: (1) Severe sepsis (2) Urinary tract infection (3) Altered level of consciousness (4) COPD (chronic obstructive pulmonary disease) (5) Morbid obesity (6) Psychosis (7) Diabetes Assessment/Plan afebrile wbc coming down cultures not available yet no sputum yet Urine has gram negative rods, culture pending continue Aztreonam, vancomycine sliding scale labs in am short trial of steroids cxr's reviewed, no change, mostly c/w chronic interstitial changes. Subjective ROS Limited/Unobtainable: No Interval Events: still short of breath Constitutional: Reports: no symptoms Respiratory: Reports: shortness of breath, sputum Cardiovascular: Reports: no symptoms Gastrointestinal/Abdominal: Reports: no symptoms Genitourinary: Reports: no symptoms Allergies: Coded Allergies: PENICILLINS (Verified Allergy, Intermediate, 09/12/16) ALPRAZOLAM (Verified Allergy, Mild, 09/12/16) DIVALPROEX SODIUM (Verified Allergy, Mild, 09/12/16) VARENICLINE (Verified Allergy, Mild, 09/12/16) Objective Last 24 Hour Vital Signs Date Time Temp Pulse Resp B/P Pulse Ox O2 Delivery O2 Flow Rate FiO2 09/14/16 09:22 97.8 09/14/16 08:00 110 09/14/16 08:00 98.4 110 22 107/62 92 Venturi Mask 9.0 09/14/16 06:47 107 20 97 Venturi Mask 8.0 40 09/14/16 06:40 102 22 Venturi Mask 8.0 40 09/14/16 06:40 102 22 92 Venturi Mask 8.0 40 09/14/16 06:40 Venturi Mask 8.0 40 09/14/16 06:40 92 Venturi Mask 8.0 40 09/14/16 04:29 99.3 108 20 104/52 93 Venturi Mask 40 09/14/16 03:57 106 09/14/16 01:08 104 20 100 Venturi Mask 8.0 40 09/14/16 00:53 102 22 96 Venturi Mask 8.0 40 09/14/16 00:36 96 20 108/57 95 Venturi Mask 40 09/13/16 23:53 96.6 114 20 89/52 93 Nasal Cannula 09/13/16 22:02 99.0 09/13/16 20:00 102.0 116 20 114/70 96 Venturi Mask 40 09/13/16 19:49 123 09/13/16 19:00 114 21 Venturi Mask 8.0 40 09/13/16 19:00 Venturi Mask 8.0 40 09/13/16 19:00 93 Venturi Mask 8.0 40 09/13/16 16:00 108 09/13/16 16:00 97.8 108 22 114/64 95 Venturi Mask 40 09/13/16 12:00 98.4 99 21 98/51 95 Venturi Mask 45 Intake and Output 09/13/16 09/14/16 19:00 07:00 Intake Total 590 ml 110 ml Output Total 250 ml 550 ml Balance 340 ml -440 ml Intake Oral 340 ml IV Total 250 ml 110 ml Output Urine Total 250 ml 550 ml # Voids 100 General Appearance: WD/WN HEENT: normocephalic, atraumatic Respiratory/Chest: chest wall non-tender, lungs clear Cardiovascular: normal peripheral pulses, normal rate Abdomen: normal bowel sounds, soft, non tender Genitourinary: normal external genitalia Extremities: no cyanosis Microbiology Date/Time Source Procedure Growth Status 09/12/16 01:30 Blood Blood Culture - Preliminary NO GROWTH AFTER 48 HOURS Resulted 09/12/16 01:30 Blood Blood Culture - Preliminary NO GROWTH AFTER 48 HOURS Resulted 09/12/16 02:15 Nasal Nares Influenza Types A,B Antigen (KARTHIKEYAN) - Final Complete 09/12/16 01:45 Nasal Nares MRSA Culture - Final NO METHICILLIN RESISTANT STAPH AUREUS... Complete 09/12/16 01:45 Urine,Clean Catch Urine Culture - Preliminary Gram Negative Bacillus 1 Resulted 09/12/16 01:45 Rectum VRE Culture - Final Enterococcus Faecium - Vre Complete Laboratory Tests 09/14/16 05:00: White Blood Count 9.4, Red Blood Count 3.18L, Hemoglobin 10.9L, Hematocrit 33.7L , Mean Corpuscular Volume 106H, Mean Corpuscular Hemoglobin 34.3H, Mean Corpuscular Hemoglobin Concent 32.4, Red Cell Distribution Width 13.1, Platelet Count 181, Mean Platelet Volume 7.1, Neutrophils (%) (Auto) 70.0, Lymphocytes (% ) (Auto) 15.9L, Monocytes (%) (Auto) 11.8H, Eosinophils (%) (Auto) 0.4, Basophils (%) (Auto) 2.1H, Sodium Level 141, Potassium Level 3.9, Chloride Level 99, Carbon Dioxide Level 31H, Anion Gap 11, Blood Urea Nitrogen 8, Creatinine 0.6, Estimat Glomerular Filtration Rate , Glucose Level 126H, Calcium Level 8.2L, Total Bilirubin 0.4, Aspartate Amino Transf (AST/SGOT) 21, Alanine Aminotransferase (ALT/SGPT) 15, Alkaline Phosphatase 87, Ammonia 52H, Pro-B-Type Natriuretic Peptide 615H, Total Protein 6.8, Albumin 2.9L, Globulin 3.9, Albumin/Globulin Ratio 0.7L, Vancomycin Level Trough 10.0 Current Medications Medications (Trade) Dose Ordered Sig/Bari Route PRN Reason Start Time Stop Time Status Last Admin Dose Admin Acetaminophen (Tylenol) 650 mg Q4H PRN ORAL fever 09/12/16 13:00 10/12/16 12:59 09/13/16 20:53 Acetaminophen/ Hydrocodone Bitart ([place] 10/325) 1 ea EVERY 6 HOURS PRN ORAL For Pain 09/13/16 20:45 09/20/16 20:44 09/14/16 07:58 Al Hydroxide/Mg Hydroxide (Mylanta II) 30 ml Q6H PRN ORAL dyspepsia 09/12/16 13:00 10/12/16 12:59 Aztreonam/Dextrose (Azactam/D5W 50ml) 55 ml @ 110 mls/hr Q8HR IVPB 09/12/16 14:00 09/19/16 13:59 09/14/16 05:33 Dextrose (Dextrose 50%) STAT PRN IV Hypoglycemia 09/12/16 13:00 10/12/16 12:59 Haloperidol (Haldol) 5 mg EVERY 6 HOURS ORAL 09/12/16 15:10 10/12/16 11:59 09/14/16 06:32 Heparin Sodium (Porcine) (Heparin 5000 units/ml) 5,000 units EVERY 12 HOURS SUBQ 09/12/16 21:00 10/12/16 20:59 09/14/16 09:25 Insulin Aspart (NovoLOG) BEFORE MEALS AND HS SUBQ 09/12/16 13:00 10/12/16 12:59 09/14/16 06:32 Levalbuterol HCl (Xopenex) 0.63 mg EVERY 6 HOURS HHN 09/14/16 00:00 09/19/16 00:00 09/14/16 06:40 Levothyroxine Sodium (Synthroid) 100 mcg DAILY@0630 ORAL 09/13/16 06:30 10/13/16 06:29 09/14/16 06:32 Lorazepam 1 mg 1 mg Q4H PRN IV For Anxiety 09/13/16 20:45 09/20/16 20:44 09/14/16 07:47 Nitroglycerin (Ntg) 0.4 mg Q5MIN X3 PRN SL Prn Chest Pain 09/12/16 13:00 10/12/16 12:59 Olanzapine (ZyPREXA) 5 mg DAILY ORAL 09/13/16 09:00 10/13/16 08:59 09/14/16 09:24 Ondansetron HCl (Zofran) 4 mg Q6H PRN IVP Nausea & Vomiting 09/12/16 13:00 10/12/16 12:59 Polyethylene Glycol (Miralax) 17 gm DAILYPRN PRN ORAL Constipation 09/12/16 13:00 10/12/16 12:59 Promethazine HCl/ Codeine (Phenergan with Codeine) 5 ml Q4H PRN ORAL For Cough 09/13/16 08:15 10/13/16 08:14 09/13/16 18:27 Quetiapine Fumarate (SEROquel) 200 mg Q12HR ORAL 09/12/16 21:00 10/12/16 20:59 09/14/16 09:24 Valproic Acid (Depakene) 250 mg Q12HR ORAL 09/13/16 14:00 10/13/16 13:59 09/14/16 09:25 Vancomycin HCl 1 ea 1 ea DAILY PRN MISC Per rx protocol 09/12/16 14:00 10/12/16 13:59 Vancomycin HCl/ Dextrose (Vancomycin/D5W 250ml) 325 ml @ 162.5 mls/ hr Q12H IVPB 09/14/16 10:00 09/19/16 09:59 09/14/16 10:29 DIDI WEISS Sep 14, 2016 11:19
[2016-09-14 12:00] VITALS: BP 92/60
[2016-09-14] MEDS ORDERED: Solu-MEDROL 125mg Inj IVP SCH (12:30)
--- NOTE | 2016-09-14 12:49 | Diagnostic Imaging Report ---
Indications: DYSPNEA Technique: Portable AP chest Findings: Comparison: 09/13/16 Inspiratory effort has decreased. Image quality decreased. Pulmonary vascular redistribution, bilateral interstitial infiltrates apparently increased. Bibasal pleural effusions appear to have developed. No other change. IMPRESSION: Limited exam demonstrating apparent worsening of bilateral congestive changes since one day prior. Some of this apparent change may be technically related, however.
--- NOTE | 2016-09-14 14:52 | Diagnostic Imaging Report ---
Indications: Abdominal pain and distention, elevated renal function tests Technique: Transabdominal real-time grayscale and duplex Doppler imaging of the upper abdomen and retroperitoneum was performed. Findings: Comparison: None. Liver normal size and surface contour, mildly increased parenchymal echogenicity. No focal lesions. Gallbladder contains multiple punctate echogenic mural foci demonstrating, tail artifact. No intraluminal stones or sludge. No mural thickening or adjacent fluid collections. Sonographic Boudreaux sign negative.. Bile ducts normal caliber. Common bile duct 8 mm. Pancreas head and body unremarkable; tail obscured. Spleen unremarkable. Right kidney unremarkable. Left kidney unremarkable. Abdominal aorta, intrahepatic portion of inferior vena cava patent, normal caliber. Duplex Doppler imaging demonstrates antegrade flow in splenic, portal, hepatic veins. No ascites. IMPRESSION: Hepatic steatosis Hyperplastic cholecystosis Mild prominence of common bile duct without obvious obstructive etiology, may represent senescent change. Correlate clinically..
--- NOTE | 2016-09-14 15:57 | Consultation ---
Consult Note Consult Note ID CONSULT: Dict# [id number] Assessment/Plan ASSESSMENT: 71 y/o female with: // GNR UTI - C&S pending // Possible HCAP - SCx, Legionella UAg pending - CXR: apparent worsening of bilateral congestive changes - negative: influenza // Severe sepsis SP - resolved lactic acidosis // Leukocytosis - resolved // Fever - improved // Acute on chronic diastolic CHF - BNP improved // Acute on chronic encephalopathy, m/l septic - chronic psychosis // Morbid obesity // NH resident // VRE colonized // PCN allergy - unable to qualify // Full Code PLAN: - continue aztreonam d# 3, add levaquin d# 1. DC IV vancomycin d# 3 - no GP identified, MRSA screen(-) - taper steroids per pulm - f/u cultures, legionella UAg, adjust ABX accordingly - monitor CBC, temperatures - monitor BMP - monitor CXR Thanks! Will follow MICHAEL SANCHEZ Sep 14, 2016 15:57
[2016-09-14 16:00] VITALS: BP 102/64
[2016-09-14] MEDS ORDERED: Nitroglycerin Subl 0.4mg tab (Bottle Of 25) SL PRN (17:30)
[2016-09-14] MEDS ORDERED: Norco 10mg/325mg tab ORAL PRN (18:00)
[2016-09-14] MEDS ORDERED: Mylanta II UD 30ml ORAL PRN (19:00)
[2016-09-14] MEDS: Solu-MEDROL 125mg Inj IVP SCH (19:07)
[2016-09-14 20:00] VITALS: BP_SYST 110; BP_SYST 134; BP_DIAS 60; BP_DIAS 68
[2016-09-14] MEDS ORDERED: Promethazine/Codeine 5ml UD ORAL PRN (20:15)
--- NOTE | 2016-09-14 21:28 | Consultation ---
DATE OF CONSULTATION: 09/14/2016 INFECTIOUS DISEASE CONSULTATION REQUESTING PHYSICIAN: Jacinto Calvo M.D. REASON FOR CONSULTATION: UTI and severe sepsis. HISTORY OF PRESENT ILLNESS: This is a 71-year-old female with a history of psychosis admitted [facility] 09/12/2016 from [facility] with altered mental status, cough and shortness of breath. Chest x-ray showed bilateral congestive changes. Influenza screen was negative. She met severe sepsis criteria with fever of 102.4 degrees and white blood cell count of 15.7, and lactic acid of 2.9. Urinalysis suggests possible UTI and subsequently grew greater than 100,000 colony-forming units of gram-negative rods. Blood cultures are no growth to date. Sputum culture is pending. She has been started on empiric IV vancomycin and aztreonam as well as steroids. ID now consulted to assist in management. PAST MEDICAL HISTORY: 1. Chronic psychosis. 2. Hypothyroidism. 3. Morbid obesity. PAST SURGICAL HISTORY: Unknown. MEDICATIONS: 1. Vancomycin day #3. 2. Aztreonam day #3. 3. Solu-Medrol. 4. Depakote. 5. Zyprexa. 6. Synthroid. 7. Subcutaneous heparin. 8. Seroquel. 9. Haldol. ALLERGIES: 1. Penicillin, unable to qualify. 2. Varenicline. 3. Divalproex. 4. Alprazolam. SOCIAL HISTORY: The patient is resident of a care facility, otherwise unknown. FAMILY HISTORY: Unknown. REVIEW OF SYSTEMS: Unable to obtain. PHYSICAL EXAMINATION: GENERAL: The patient is not very responsive. Breathing comfortably. VITAL SIGNS: Maximum temperature 102.4 degrees, blood pressure 96/60, heart rate in the 90s, respiratory rate 20, and saturating 100% on a Venti mask. CARDIOVASCULAR: Regular rate and rhythm. No murmurs. PULMONARY: Bilateral crackles. ABDOMEN: Bowel sounds present. Soft, nondistended, and nontender. Griggs catheter in place. EXTREMITY: Edema. LABORATORY AND DIAGNOSTIC DATA: White blood cell count 9.1 decreased from 15.7, hemoglobin 10.9, and platelets 181,000. Sodium 141, potassium 3.9, chloride 99, bicarbonate 31, BUN 8 and creatinine 0.6. Lactic acid 2.9 decreased to 1.7. Ammonia level 52. Liver function tests within normal limits. Troponin negative x1. BNP 1168 decreased to 615. Microbiology, 1. On 09/12/2016, influenza screen negative. 2. On 09/12/2016, urine culture greater than 100,000 colony-forming units of gram-negative rods with positive urinalysis. 3. On 09/02/2016, blood culture no growth to date. 4. On 09/12/2016, sputum culture pending. Imaging, 5. On 09/14/2016, bilateral lower extremity Doppler ultrasound negative for DVT. Right Ortiz cyst noted. 6. Abdominal ultrasound with fatty liver. 7. Chest x-ray with worsening bilateral congestive changes. ASSESSMENT: 1. Gram-negative vielka urinary tract infection. Culture and sensitivity is pending. 2. Possible healthcare associated pneumonia. Sputum culture and Legionella urine antigen are pending. Chest x-ray shows apparent worsening of bilateral congestive changes and influenza screen is negative. 3. Severe sepsis with resolved lactic acidosis. 4. Leukocytosis, resolved. 5. Fever, improved. 6. Acute on chronic diastolic congestive heart failure with improvement in beta-natriuretic peptide. 7. Acute on chronic encephalopathy with chronic psychosis. 8. Morbid obesity. 9. [facility] resident. 10. Vancomycin-resistant Enterococcus colonized. 11. Penicillin allergy, unable to qualify. 12. Full Code. PLAN: 1. Continue aztreonam day #3 and add Levaquin day #1. 2. Discontinue intravenous vancomycin, as no gram-positive organisms have been identified and the patient's methicillin resistant Staphylococcus aureus screen is negative. 3. Taper steroids per Pulmonary. 4. Follow up cultures and Legionella urine antigen and adjust antibiotics accordingly. 5. Monitor CBC and temperatures. 6. Monitor BMP. 7. Monitor chest x-ray. Thank you. We will follow. Murali Carreno M.D. DR: KULDEEP JOB#: [id number] CC: Evangelista Batista M.D. Arash Alborzi, M.D
[2016-09-15] VITALS: BP 112/58
[2016-09-15] MEDS: Solu-MEDROL 125mg Inj IVP SCH ×2 (00:06→06:26)
--- NOTE | 2016-09-15 02:08 | Progress Note ---
DATE: 09/14/2016 CARDIOLOGY PROGRESS NOTE SUBJECTIVE: The patient has defervesced. Her white count is decreasing. Urine culture is positive. She is on broad-spectrum antibiotics. OBJECTIVE: VITAL SIGNS: Afebrile, blood pressure 107/62, heart rate 110, and respiratory rate 20. LUNGS: Bilateral breath sounds. Scattered rhonchi. Few expiratory wheezes. HEART: Regular rhythm rate. Normal S1 and S2 with a fourth heart sound. ABDOMEN: Soft and nontender. EXTREMITIES: No edema. LABORATORY AND DIAGNOSTIC DATA: White count 9.4, hemoglobin 10.9, potassium 3.9, BUN 8, creatinine 0.6, and bicarbonate 31. Ammonia 52. Pro-natriuretic peptide 615. Albumin 2.9. Venous duplex scan is negative for DVT. IMPRESSION: 1. Urinary tract infection. 2. Sepsis. 3. Secondary sinus tachycardia. 4. Acute bronchospasm. 5. Chronic obstructive pulmonary disease exacerbation. 6. Retgb-yf-elqntqu diastolic congestive heart failure, clinically compensated. 7. Hypothyroidism, on replacement therapy. 8. Moderate protein calorie malnutrition. PLAN: Antibiotics. Steroids with rapid taper. Titrate insulin coverage. Thyroid supplement. Restart maintenance of diuretic therapy. Rupesh Aceves M.D. DR: Jose F JOB#: [id number] CC:
--- NOTE | 2016-09-15 02:47 | Progress Note ---
DATE: 09/14/2016 SUBJECTIVE: The patient is awake alert, afebrile, emotional, and tachycardic. PHYSICAL EXAMINATION: VITAL SIGNS: Blood pressure is 94/92, pulse is 114, respirations 20, and temperature 97.5 degrees. HEENT: Eyes were normal. ENT, mucous membranes were moist and intact. NECK: Supple with no JVD without lymph nodes. LUNGS: Clear with decreased breath sounds at both bases and some scattered high-pitched wheezing in both lungs. HEART: Normal sounds with regular beats. There is tachycardia at rest. Sinus tachycardia on monitor. ABDOMEN: Soft, obese, and nontender with normal bowel sounds. Gastrostomy site is clean. EXTREMITIES: Warm without cyanosis or clubbing. There is 2+ edema. LABORATORY DATA: Her hemoglobin is 10.9, hematocrit 33.7, MCV of 106, WBC of 9.4, and platelet is 191,000. Her BUN and creatinine is 8 and 0.6 respectively. Sodium is 141, potassium 3.9, chloride 99, and CO2 is 31. Her glucose is 125. Her calcium is 8.2. Her ammonia level is 52. Her proBNP is 615. Albumin is 2.9. is 3.9. Her chest x-ray shows bilateral congestive heart failure as compared to previous day. Her is found at clinical status, which is improved over the last two days and mildly technically dependant. Abdominal ultrasound revealed fatty liver without focal abnormalities although she has multiple stones and hyperplastic cholecystosis. Common bile duct is slightly increased in size. Renal ultrasound revealed patent renal system and cyst was found in the right popliteal fossa and Ortiz cyst measuring 3.1 x 2.9 x 1.6. IMPRESSION AND PLAN: The patient has exacerbation of chronic obstructive pulmonary disease. Her blood pressure moderately improved. Her shortness of breath has moderately improved. She has silent symptoms of mild congestive heart failure. The patient is on furosemide 40 mg daily and methyl prednisolone 60 mg every six hours. The patient will be placed on enalapril 10 mg b.i.d. and nitrate 20 mg b.i.d. repeat laboratory tests will be done in the morning. Jacinto Calvo M.D. DR: IVÁN JOB#: [id number] CC:
[2016-09-15] MEDS: Levalbuterol Inh UD 1.25mg/0.5ml HHN SCH ×4 (02:48→18:00)
[2016-09-15 04:00] VITALS: BP 98/58
[2016-09-15] MEDS: LORazepam Inj 2mg/ml 1ml IV PRN ×2 (05:19→09:01)
[2016-09-15] MEDS: NovoLOG Insulin Flexpen SUBQ SCH ×3 (06:26→17:52)
[2016-09-15] MEDS: Aztreonam Inj 1 GM in D5W 55 ML IVPB SCH ×2 (06:27→14:30)
[2016-09-15 07:45] LABS: BASOPHILS % (AUTO) 0.8 % (0.0-2.0); LYMPHOCYTES % (AUTO) 15.8 % (20.0-45.0); MEAN CORPUSCULAR HEMOGLOBIN 33.1 PG (27.0-31.0); MEAN CORPUSCULAR HGB CONC 32.3 G/DL (32.0-36.0); MEAN CORPUSCULAR VOLUME 103 FL (80-99); MEAN PLATELET VOLUME 7.1 FL (6.5-10.1); MONOCYTES % (AUTO) 3.2 % (1.0-10.0); NEUTROPHILS % (AUTO) 80.2 % (45.0-75.0); PLATELET COUNT 188 K/UL (150-450); RED BLOOD COUNT 3.33 M/UL (4.20-5.40); WHITE BLOOD COUNT 6.3 K/UL (4.8-10.8)
[2016-09-15 08:00] VITALS: BP 105/58
[2016-09-15 08:07] LABS: ALANINE AMINOTRANSFERASE 13 U/L (3-33); ALBUMIN/GLOBULIN RATIO 0.8 (1.0-2.7); ANION GAP 7 (5-15); ASPARTATE AMINO TRANSFERASE 15 U/L (5-40); CALCIUM 8.5 mg/dL (8.6-10.2); CARBON DIOXIDE 37 mEQ/L (20-30); CHLORIDE 94 mEQ/L (98-107); CREATININE 0.5 mg/dL (0.5-0.9); HEMOLYSIS 2; MAGNESIUM 2.4 mg/dL (1.7-2.5); PHOSPHORUS 2.7 mg/dL (2.5-4.8); POTASSIUM 4.1 mEQ/L (3.4-4.9); SODIUM 138 mEQ/L (135-145); TOTAL PROTEIN 6.5 g/dL (6.6-8.7)
[2016-09-15] MEDS: Valproic Acid 250mg/5ml Liquid ORAL SCH (08:57)
[2016-09-15] MEDS: Heparin 5000 units/ml inj SUBQ SCH (09:00)
[2016-09-15] MEDS ORDERED: Imdur 30mg tab ORAL SCH (09:00)
[2016-09-15] MEDS ORDERED: Furosemide 40mg tab ORAL SCH (09:00)
[2016-09-15] MEDS: QUEtiapine 200mg tab ORAL SCH (09:19)
[2016-09-15 12:00] VITALS: BP 107/55
--- NOTE | 2016-09-15 12:14 | Pulmonology Progress Note ---
Assessment/Plan Problems: (1) Severe sepsis (2) Urinary tract infection (3) Altered level of consciousness (4) COPD (chronic obstructive pulmonary disease) (5) Morbid obesity (6) Psychosis (7) Diabetes Assessment/Plan afebrile, on Lasix now wbc coming down no sputum yet Urine has gram negative rods, culture pending continue Aztreonam, Levofloxacin, taper down abx once cultures are available sliding scale labs in am short trial of steroids, decrease to q 12 today cxr's reviewed, no change, mostly c/w chronic interstitial changes. might benefit from psych evaluation, because of episodes of agitation ( responding to ativan) increase zyprexa to 10 qd increase frequency of haldol to q4 Subjective Interval Events: afebrile for two days, tachycardia resolved, keeps pulling NC , confused Allergies: Coded Allergies: PENICILLINS (Verified Allergy, Intermediate, 09/12/16) ALPRAZOLAM (Verified Allergy, Mild, 09/12/16) DIVALPROEX SODIUM (Verified Allergy, Mild, 09/12/16) VARENICLINE (Verified Allergy, Mild, 09/12/16) Objective Last 24 Hour Vital Signs Date Time Temp Pulse Resp B/P Pulse Ox O2 Delivery O2 Flow Rate FiO2 09/15/16 08:59 138/77 09/15/16 08:57 138/77 09/15/16 08:00 96.5 95 18 105/58 98 Venturi Mask 09/15/16 07:57 96 Venturi Mask 10.0 45 09/15/16 07:56 Venturi Mask 10.0 45 09/15/16 07:55 96 20 96 Venturi Mask 10.0 45 09/15/16 07:44 90 24 87 Room Air 21 09/15/16 07:43 87 Room Air 21 09/15/16 04:00 97 09/15/16 04:00 97.2 92 16 98/58 90 Simple Mask 10.0 09/15/16 01:40 90 20 95 Venturi Mask 10.0 45 09/15/16 01:30 84 20 92 Venturi Mask 10.0 45 09/15/16 00:00 97.2 94 18 112/58 93 Simple Mask 10.0 09/15/16 00:00 88 09/14/16 20:00 97.5 96 22 110/60 95 09/14/16 20:00 109 09/14/16 19:45 114 20 96 Venturi Mask 10.0 45 09/14/16 19:30 Venturi Mask 10.0 45 09/14/16 19:30 101 20 Venturi Mask 10.0 45 09/14/16 19:30 102 20 92 Venturi Mask 10.0 45 09/14/16 19:30 94 Venturi Mask 10.0 45 09/14/16 16:00 97.2 92 22 102/64 96 Venturi Mask 8.0 09/14/16 13:21 93 20 100 Venturi Mask 8.0 40 09/14/16 13:13 98 22 97 Venturi Mask 8.0 40 Intake and Output 09/14/16 09/15/16 19:00 07:00 Intake Total 110 ml 120 ml Output Total 200 ml 850 ml Balance -90 ml -730 ml Intake Oral 120 ml IV Total 110 ml Output Urine Total 200 ml 850 ml General Appearance: WD/WN HEENT: normocephalic, atraumatic Respiratory/Chest: chest wall non-tender, crackles/rales Cardiovascular: normal peripheral pulses, normal rate Abdomen: normal bowel sounds, soft, non tender Extremities: no cyanosis Skin: no rash 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 normal Lymphatic: no neck adenopathy Laboratory Tests 09/15/16 06:50: White Blood Count 6.3, Red Blood Count 3.33L, Hemoglobin 11.1L, Hematocrit 34.2L , Mean Corpuscular Volume 103H, Mean Corpuscular Hemoglobin 33.1H, Mean Corpuscular Hemoglobin Concent 32.3, Red Cell Distribution Width 13.0, Platelet Count 188, Mean Platelet Volume 7.1, Neutrophils (%) (Auto) 80.2H, Lymphocytes ( %) (Auto) 15.8L, Monocytes (%) (Auto) 3.2, Eosinophils (%) (Auto) 0.0, Basophils (%) (Auto) 0.8, Sodium Level 138, Potassium Level 4.1, Chloride Level 94L, Carbon Dioxide Level 37H, Anion Gap 7, Blood Urea Nitrogen 10, Creatinine 0.5, Estimat Glomerular Filtration Rate , Glucose Level 166H, Calcium Level 8.5L , Phosphorus Level 2.7, Magnesium Level 2.4, Total Bilirubin 0.2, Aspartate Amino Transf (AST/SGOT) 15, Alanine Aminotransferase (ALT/SGPT) 13, Alkaline Phosphatase 55, Total Protein 6.5L, Albumin 3.0L, Globulin 3.5, Albumin/ Globulin Ratio 0.8L Current Medications Medications (Trade) Dose Ordered Sig/Bari Route PRN Reason Start Time Stop Time Status Last Admin Dose Admin Acetaminophen (Tylenol) 650 mg Q4H PRN ORAL fever 09/14/16 21:00 10/14/16 20:59 Acetaminophen/ Hydrocodone Bitart ([place] 10/325) 1 ea EVERY 6 HOURS PRN ORAL For Pain 09/14/16 18:00 09/21/16 17:59 Al Hydroxide/Mg Hydroxide (Mylanta II) 30 ml Q6H PRN ORAL dyspepsia 09/14/16 19:00 10/14/16 18:59 Aztreonam 1 gm/ Dextrose 55 ml @ 110 mls/hr Q8HR IVPB 09/14/16 22:00 09/19/16 21:59 09/15/16 06:27 Dextrose (Dextrose 50%) STAT PRN IV Hypoglycemia 09/15/16 13:00 10/15/16 12:59 Enalapril Maleate (Vasotec) 10 mg BID ORAL 09/15/16 09:00 10/15/16 08:59 09/15/16 08:59 Furosemide (Lasix) 40 mg DAILY ORAL 09/15/16 09:00 10/15/16 08:59 09/15/16 09:00 Haloperidol (Haldol) 5 mg EVERY 6 HOURS ORAL 09/14/16 18:00 10/14/16 17:59 09/15/16 09:01 Heparin Sodium (Porcine) (Heparin 5000 units/ml) 5,000 units EVERY 12 HOURS SUBQ 09/14/16 21:00 10/14/16 20:59 09/15/16 09:00 Insulin Aspart (NovoLOG) BEFORE MEALS AND HS SUBQ 09/14/16 21:00 10/14/16 20:59 09/15/16 06:26 Isosorbide Mononitrate (Imdur) 30 mg DAILY ORAL 09/15/16 09:00 10/15/16 08:59 09/15/16 08:57 Levalbuterol HCl (Xopenex) 0.63 mg EVERY 6 HOURS HHN 09/14/16 18:00 09/19/16 17:59 09/15/16 08:15 Levofloxacin (Levaquin 750mg/ D5W) 150 ml @ 100 mls/hr Q24H IVPB 09/14/16 18:00 09/21/16 17:59 09/14/16 19:07 Levothyroxine Sodium (Synthroid) 100 mcg DAILY@0630 ORAL 09/15/16 06:30 10/15/16 06:29 09/15/16 06:26 Lorazepam (Ativan 2mg/ml 1ml) 1 mg Q4H PRN IV For Anxiety 09/14/16 20:45 09/21/16 20:44 09/15/16 09:01 Methylprednisolone Sodium Succinate (Solu-MEDROL) 60 mg EVERY 6 HOURS IVP 09/14/16 18:00 10/14/16 17:59 09/15/16 06:26 Nitroglycerin (Ntg) 0.4 mg Q5MIN X3 PRN SL Prn Chest Pain 09/14/16 17:30 10/14/16 17:29 Olanzapine (ZyPREXA) 5 mg DAILY ORAL 09/15/16 09:00 10/15/16 08:59 09/15/16 09:00 Ondansetron HCl (Zofran) 4 mg Q6H PRN IVP Nausea & Vomiting 09/14/16 19:00 10/14/16 18:59 Polyethylene Glycol (Miralax) 17 gm DAILYPRN PRN ORAL Constipation 09/15/16 13:00 10/15/16 12:59 Promethazine HCl/ Codeine (Phenergan with Codeine) 5 ml Q4H PRN ORAL For Cough 09/14/16 20:15 10/14/16 20:14 Quetiapine Fumarate (SEROquel) 200 mg Q12HR ORAL 09/14/16 21:00 10/14/16 20:59 09/15/16 09:19 Valproic Acid (Depakene) 250 mg Q12HR ORAL 09/14/16 21:00 10/14/16 20:59 09/15/16 08:57 DIDI WEISS Sep 15, 2016 12:14
[2016-09-15] MEDS ORDERED: Miralax 17gm pkt ORAL PRN (13:00)
--- NOTE | 2016-09-15 13:56 | Infectious Diseases Prog Note ---
Assessment/Plan Assessment/Plan ASSESSMENT: 71 y/o female with: // GNR UTI - C&S pending // Possible HCAP - SCx, Legionella UAg pending - CXR: apparent worsening of bilateral congestive changes - negative: influenza // Severe sepsis SP - resolved lactic acidosis // Leukocytosis - resolved // Fever - resolved // Acute on chronic diastolic CHF - BNP improved // Acute on chronic encephalopathy, m/l septic - chronic psychosis // Morbid obesity // NH resident // VRE colonized // PCN allergy - unable to qualify // Full Code PLAN: - continue aztreonam d# 4, levaquin d# 2 ( ABX d# 4 / 7 ) ( 09/14 SP IV vancomycin d# 3 ) - taper steroids per pulm - f/u cultures, legionella UAg, adjust ABX accordingly - monitor CBC, temperatures - monitor BMP - monitor CXR Subjective Allergies: Coded Allergies: PENICILLINS (Verified Allergy, Intermediate, 09/12/16) ALPRAZOLAM (Verified Allergy, Mild, 09/12/16) DIVALPROEX SODIUM (Verified Allergy, Mild, 09/12/16) VARENICLINE (Verified Allergy, Mild, 09/12/16) Subjective remains afebrile. Objective Vital Signs Last 24 Hour Vital Signs Date Time Temp Pulse Resp B/P Pulse Ox O2 Delivery O2 Flow Rate FiO2 09/15/16 12:48 93 20 98 Venturi Mask 10.0 45 09/15/16 12:38 88 24 87 Room Air 21 09/15/16 12:00 97.0 86 18 107/55 95 Room Air 09/15/16 08:59 138/77 09/15/16 08:57 138/77 09/15/16 08:00 96.5 95 18 105/58 98 Venturi Mask 09/15/16 07:57 96 Venturi Mask 10.0 45 09/15/16 07:56 Venturi Mask 10.0 45 09/15/16 07:55 96 20 96 Venturi Mask 10.0 45 09/15/16 07:44 90 24 87 Room Air 21 09/15/16 07:43 87 Room Air 21 09/15/16 04:00 97 09/15/16 04:00 97.2 92 16 98/58 90 Simple Mask 10.0 09/15/16 01:40 90 20 95 Venturi Mask 10.0 45 09/15/16 01:30 84 20 92 Venturi Mask 10.0 45 09/15/16 00:00 97.2 94 18 112/58 93 Simple Mask 10.0 09/15/16 00:00 88 09/14/16 20:00 97.5 96 22 110/60 95 09/14/16 20:00 109 09/14/16 19:45 114 20 96 Venturi Mask 10.0 45 09/14/16 19:30 Venturi Mask 10.0 45 09/14/16 19:30 101 20 Venturi Mask 10.0 45 09/14/16 19:30 102 20 92 Venturi Mask 10.0 45 09/14/16 19:30 94 Venturi Mask 10.0 45 09/14/16 16:00 97.2 92 22 102/64 96 Venturi Mask 8.0 Height (Feet): 5 Height (Inches): 6.00 Weight (Pounds): 240 General Appearance: no acute distress Respiratory/Chest: decreased breath sounds Cardiovascular: normal rate, regular rhythm Abdomen: normal bowel sounds, soft, non tender, non distended Laboratory Tests Test 09/15/16 06:50 White Blood Count 6.3 K/UL (4.8-10.8) Red Blood Count 3.33 M/UL (4.20-5.40) L Hemoglobin 11.1 G/DL (12.0-16.0) L Hematocrit 34.2 % (37.0-47.0) L Mean Corpuscular Volume 103 FL (80-99) H Mean Corpuscular Hemoglobin 33.1 PG (27.0-31.0) H Mean Corpuscular Hemoglobin Concent 32.3 G/DL (32.0-36.0) Red Cell Distribution Width 13.0 % (11.6-14.8) Platelet Count 188 K/UL (150-450) Mean Platelet Volume 7.1 FL (6.5-10.1) Neutrophils (%) (Auto) 80.2 % (45.0-75.0) H Lymphocytes (%) (Auto) 15.8 % (20.0-45.0) L Monocytes (%) (Auto) 3.2 % (1.0-10.0) Eosinophils (%) (Auto) 0.0 % (0.0-3.0) Basophils (%) (Auto) 0.8 % (0.0-2.0) Sodium Level 138 mEQ/L (135-145) Potassium Level 4.1 mEQ/L (3.4-4.9) Chloride Level 94 mEQ/L (98-107) L Carbon Dioxide Level 37 mEQ/L (20-30) H Anion Gap 7 (5-15) Blood Urea Nitrogen 10 mg/dL (7-23) Creatinine 0.5 mg/dL (0.5-0.9) Estimat Glomerular Filtration Rate mL/min (>60) Glucose Level 166 mg/dL (74-106) H Calcium Level 8.5 mg/dL (8.6-10.2) L Phosphorus Level 2.7 mg/dL (2.5-4.8) Magnesium Level 2.4 mg/dL (1.7-2.5) Total Bilirubin 0.2 mg/dL (0.0-1.2) Aspartate Amino Transf (AST/SGOT) 15 U/L (5-40) Alanine Aminotransferase (ALT/SGPT) 13 U/L (3-33) Alkaline Phosphatase 55 U/L (35-104) Total Protein 6.5 g/dL (6.6-8.7) L Albumin 3.0 g/dL (3.5-5.2) L Globulin 3.5 g/dL Albumin/Globulin Ratio 0.8 (1.0-2.7) L Current Medications Medications (Trade) Dose Ordered Sig/Bari Route PRN Reason Start Time Stop Time Status Last Admin Dose Admin Acetaminophen (Tylenol) 650 mg Q4H PRN ORAL fever 09/14/16 21:00 10/14/16 20:59 Acetaminophen/ Hydrocodone Bitart ([place] 10/325) 1 ea EVERY 6 HOURS PRN ORAL For Pain 09/14/16 18:00 09/21/16 17:59 Al Hydroxide/Mg Hydroxide (Mylanta II) 30 ml Q6H PRN ORAL dyspepsia 09/14/16 19:00 10/14/16 18:59 Aztreonam 1 gm/ Dextrose 55 ml @ 110 mls/hr Q8HR IVPB 09/14/16 22:00 09/19/16 21:59 09/15/16 06:27 Dextrose (Dextrose 50%) STAT PRN IV Hypoglycemia 09/15/16 13:00 10/15/16 12:59 Enalapril Maleate (Vasotec) 10 mg BID ORAL 09/15/16 09:00 10/15/16 08:59 09/15/16 08:59 Furosemide (Lasix) 40 mg DAILY ORAL 09/15/16 09:00 10/15/16 08:59 09/15/16 09:00 Haloperidol (Haldol) 5 mg Q4H PRN ORAL agitation 09/15/16 16:00 10/15/16 15:59 Heparin Sodium (Porcine) (Heparin 5000 units/ml) 5,000 units EVERY 12 HOURS SUBQ 09/14/16 21:00 10/14/16 20:59 09/15/16 09:00 Insulin Aspart (NovoLOG) BEFORE MEALS AND HS SUBQ 09/14/16 21:00 10/14/16 20:59 09/15/16 13:29 Isosorbide Mononitrate (Imdur) 30 mg DAILY ORAL 09/15/16 09:00 10/15/16 08:59 09/15/16 08:57 Levalbuterol HCl (Xopenex) 0.63 mg EVERY 6 HOURS HHN 09/14/16 18:00 09/19/16 17:59 09/15/16 12:46 Levofloxacin (Levaquin 750mg/ D5W) 150 ml @ 100 mls/hr Q24H IVPB 09/14/16 18:00 09/21/16 17:59 09/14/16 19:07 Levothyroxine Sodium (Synthroid) 100 mcg DAILY@0630 ORAL 09/15/16 06:30 10/15/16 06:29 09/15/16 06:26 Lorazepam (Ativan 2mg/ml 1ml) 1 mg Q4H PRN IV For Anxiety 09/14/16 20:45 09/21/16 20:44 09/15/16 09:01 Methylprednisolone Sodium Succinate (Solu-MEDROL) 60 mg EVERY 12 HOURS IVP 09/15/16 21:00 10/15/16 20:59 Nitroglycerin (Ntg) 0.4 mg Q5MIN X3 PRN SL Prn Chest Pain 09/14/16 17:30 10/14/16 17:29 Olanzapine (ZyPREXA) 10 mg DAILY ORAL 09/16/16 09:00 10/16/16 08:59 Ondansetron HCl (Zofran) 4 mg Q6H PRN IVP Nausea & Vomiting 09/14/16 19:00 10/14/16 18:59 Polyethylene Glycol (Miralax) 17 gm DAILYPRN PRN ORAL Constipation 09/15/16 13:00 10/15/16 12:59 Promethazine HCl/ Codeine (Phenergan with Codeine) 5 ml Q4H PRN ORAL For Cough 09/14/16 20:15 10/14/16 20:14 Quetiapine Fumarate (SEROquel) 200 mg Q12HR ORAL 09/14/16 21:00 10/14/16 20:59 09/15/16 09:19 Valproic Acid (Depakene) 250 mg Q12HR ORAL 09/14/16 21:00 10/14/16 20:59 09/15/16 08:57 MICHAEL SANCHEZ Sep 15, 2016 13:56
--- NOTE | 2016-09-15 15:53 | Diagnostic Imaging Report ---
Indications: DYSPNEA Technique: Portable AP chest Findings: Comparison: 09/12/16 Inspiratory effort, image exposure improved. Heart size, peripheral pulmonary vasculature within normal limits. Central pulmonary vasculature prominent. Aortic arch elongated, ectatic. Mild bilateral interstitial prominence. No pleural abnormality. IMPRESSION: Apparent mild bilateral interstitial disease, nonspecific, acuity indeterminate. This may be technically related. Chronic interstitial disease/fibrosis, acute pulmonary edema or interstitial pneumonitis not excludable. Prominent central pulmonary arteries suggest an element of pulmonary arterial hypertension Elongation and ectasia of thoracic aorta. Aneurysm not excludable.
--- NOTE | 2016-09-15 15:59 | Cardiology Report ---
APPROVED REPORT EXAM: Two-dimensional and M-mode echocardiogram with Doppler and color Doppler. INDICATION Left ventricular function M-Mode DIMENSIONS IVSd0.8 (0.7-1.1cm)Left Atrium (MM)3.6 (1.6-4.0cm) LVDd4.4 (3.5-5.6cm)Aortic Root2.5 (2.0-3.7cm) PWd1.1 (0.7-1.1cm)Aortic Cusp Exc.1.8 (1.5-2.0cm) LVDs3.2 (2.5-4.0cm) PWs0.8 cm Technically difficult study due to poor acoustic windows. Normal left ventricular chamber size, systolic function and wall motion. Left ventricular ejection fraction estimated to be 60-65 %. No evidence of left ventricular hypertrophy. Anterior Echo-free space, may be due to pericardial fat or effusion. Left cardiac chamber sizes are within normal limits. Mild right atrial and right ventricular function. Focal aortic valve sclerosis with adequate cusp excursion Thickened mitral valve leaflets with normal excursion. Mitral annulus and aortic root calcification. Pulmonic valve not well visualized. Normal tricuspid valve structure. IVC dilated at 2.9cm with minimal physiologic collapse. RA pressure of 15mmHg. A color flow and spectral Doppler study was performed and revealed: No aortic regurgitation. No mitral regurgitation. Left ventricular diastolic dysfunction grade 1. Moderate tricuspid regurgitation. Tricuspid systolic velocities suggests peak right ventricular systolic pressure of 58 mmHg Consistent with severe pulmonary hypertension.
[2016-09-15 16:00] VITALS: BP 104/55
[2016-09-15 20:00] VITALS: BP 102/55
[2016-09-15] MEDS ORDERED: Solu-MEDROL 125mg Inj IVP SCH (21:00)
--- NOTE | 2016-09-16 01:08 | Progress Note ---
DATE: 09/15/2016 CARDIOLOGY PROGRESS NOTE SUBJECTIVE: The patient has episodes of agitation. There is no respiratory distress. She has defervesced. OBJECTIVE: VITAL SIGNS: Blood pressure 138/77, heart rate 95, and respiratory rate 18. She is afebrile. LUNGS: Clear. CARDIAC: Regular rhythm and rate. Normal S1 and S2 with no murmur. ABDOMEN: Soft and nontender. EXTREMITIES: No edema. LABORATORY DATA: White count 6.3 and hemoglobin 11.1. Potassium 4.1. Albumin 3.0. Urine culture, gram-negative bacillus. IMPRESSION: 1. Urinary tract infection. 2. Sepsis. 3. Secondary sinus tachycardia associated with acute infection as well as psychiatric disorder. 4. Diastolic congestive heart failure, acute on chronic, clinically compensated now. 5. Chronic obstructive pulmonary disease exacerbation now with no active bronchospasm. 6. Moderate protein-calorie malnutrition, improving. PLAN: 1. Continue steroid taper. 2. Maintain thyroid replacement. 3. Await final cultures. 4. Antibiotics per Infectious Disease [employer] consultant. 5. Maintenance diuretic dose has been resumed. 6. Avoid tighter blood pressure control at this time due to orthostatic risk. Rupesh Aceves M.D. DR: KIERA JOB#: [id number] CC:
--- NOTE | 2016-09-16 11:07 | Discharge Summary ---
DATE OF ADMISSION: 09/12/2016 DATE OF DISCHARGE: 09/15/2016 This is one of the several admissions to [facility] of this 71-year-old lady because of severe shortness of breath and pulmonary sepsis. HISTORY OF PRESENT ILLNESS: Details of the event and circumstances that led the patient to be admitted to this medical unit can be found in the History and Physical. In brief, the patient was recently transferred to extended care facility where she condition for the next 48 hours. She was found to be on the floor with severe shortness of breath. She was transferred by power generation engineer to [facility] emergency room where she was found to have hypoxic, tachycardia, febrile with leukocytosis, and the patient was admitted. HOSPITAL COURSE: Upon admission, the patient underwent clinical, biological, and imaging study. Clinical assessment revealed the patient regained normal blood pressure. Her tachycardia has resolved. She was placed on ceftriaxone 1 g IV piggyback q.8, metronidazole 500 mg IV piggyback q.8, and vancomycin 1 g IV piggyback q. 24 h. She received respiratory therapy with albuterol sulfate in addition, she was found to have peripheral edema and and elevated BNP. She was placed on enalapril 10 mg b.i.d. and isosorbide mononitrate 30 mg daily and condition has markedly improved. On the second hospital day, she was afebrile, hemodynamically stable, and without leukocytosis with O2 saturation of 100% with Venti mask. Tachycardia 86 to 93. In addition to the above, chronic psychosis for which she is on Zyprexa, Seroquel, and Haldol. During her stay, the patient did not have any acute psychotic episodes. The patient also has morbid obesity with weight of more than 300 pounds. She is discharged back to convalescent where she will be as of 24 hours after discharge. She will continue for the next 4 days. Jacinto Calvo M.D. DR: Muriel JOB#: [id number] CC:
--- NOTE | 2016-09-19 17:14 | Diagnostic Imaging Report ---
APPROVED REPORT CPT Code: 91790 Present Symptoms Lower Extremity Pain: Bilateral BILATERAL: Imaging reveals a patent deep venous system bilaterally. There is no evidence of thrombus within the femoral, popliteal or tibial segments. The greater saphenous veins are also within normal limits. Doppler indicates normal spontaneous flow within these segments. INCIDENTAL FINDING: A Bakers cyst measuring 3.18 X 2.98 X 1.6cm was seen at the right popliteal fossa.
== END 2016-09-15 20:45 | DRG 871 ==
LOC: EDBD 01:09 → EMR 01:23 → 2W 03:41 → EDBEDREQ 05:14 → 2E 09-14 17:14
PROC: 5A09357 Assistance with Respiratory Ventilation, Less than 24 Consecutive Hours, Continuous Positive Airway Pressure (ICD-10-PCS; principal; 2016-09-12)
DX: A41.9 Sepsis, unspecified organism (principal); I50.33 Acute on chronic diastolic (congestive) heart failure; G93.40 Encephalopathy, unspecified; E44.0 Moderate protein-calorie malnutrition; N39.0 Urinary tract infection, site not specified; E87.2 Acidosis; E11.9 Type 2 diabetes mellitus without complications; B96.20 Unspecified Escherichia coli [E. coli] as the cause of diseases classified elsewhere; J44.1 Chronic obstructive pulmonary disease with (acute) exacerbation; D72.829 Elevated white blood cell count, unspecified; E83.39 Other disorders of phosphorus metabolism; E03.9 Hypothyroidism, unspecified; R00.0 Tachycardia, unspecified; E66.01 Morbid (severe) obesity due to excess calories; R09.02 Hypoxemia; E78.5 Hyperlipidemia, unspecified; R65.20 Severe sepsis without septic shock; K76.0 Fatty (change of) liver, not elsewhere classified; Z87.891 Personal history of nicotine dependence; M71.21 Synovial cyst of popliteal space [Baker], right knee; J98.01 Acute bronchospasm; Z88.0 Allergy status to penicillin; F29 Unspecified psychosis not due to a substance or known physiological condition; Z68.38 Body mass index [BMI] 38.0-38.9, adult; Z16.12 Extended spectrum beta lactamase (ESBL) resistance; Z79.4 Long term (current) use of insulin
CPT/HCPCS: 36415; 71010; 76700; 76775; 80053; 80061; 80069; 80202; 81003; 82140; 82164; 82550; 82553; 82962; 83605; 83735; 83880; 84100; 84439; 84443; 84481; 84484; 85025; 85610; 85730; 86710; 87040; 87081; 87086; 87181; 93005; 93306; 93970; 94640; 94664; 94760; J1815; J7620